=== PATIENT | male | born 1990 | race African-American/Black ===

== ENCOUNTER 2021-02-04 06:02 | Emergency (ER) | payer BC ==
[2021-02-04 06:33] LABS: Urine Blood Trace-intact (Negative); Urine Glucose Negative (Negative); Urine Protein Negative (Negative); Urine Specific Gravity 1.025 (1.005-1.030); Urine pH 5.5 (5.0-7.0)
--- NOTE | 2021-02-04 06:46 | EDPHYS ---
Physician Documentation [facility] Name: Reji Moncada Jr Age: 30 yrs Sex: Male : 1990 Arrival Date: 02/04/2021 Time: 06:07 Bed 4 Private MD: ED Physician Gavin Aquino HPI: 02/04 07:03 This 30 yrs old Black Male presents to ER via Ambulatory with complaints of Abdominal tw4 Pain. 07:03 The patient presents with abdominal pain in the left lower quadrant. Onset: The tw4 symptoms/episode began/occurred 2 day(s) ago. The symptoms do not radiate. Associated signs and symptoms: none. The symptoms are described as dull. Modifying factors: The symptoms are alleviated by nothing, the symptoms are aggravated by nothing. Severity of pain: At its worst the pain was mild in the emergency department the pain has resolved. The patient has not experienced similar symptoms in the past. 07:03 PT WANTS STD TEST. tw4 Historical: - Allergies: 06:24 No Known Allergies; bb - Home Meds: 06:24 None [Active]; bb - PMHx: 06:24 None; bb - PSHx: 06:24 None; bb - Immunization history:: Adult Immunizations up to date. - Social history:: Smoking status: Patient denies any tobacco usage or history of. Patient uses alcohol, occasionally. Patient/guardian denies using street drugs. ROS: 07:03 Constitutional: Negative for fever, chills, and weight loss, Eyes: Negative for injury, tw4 pain, redness, and discharge. 07:03 Cardiovascular: Negative for chest pain, palpitations, and edema, Respiratory: Negative for shortness of breath, cough, wheezing, and pleuritic chest pain, Back: Negative for injury and pain, MS/Extremity: Negative for injury and deformity, Skin: Negative for injury, rash, and discoloration, Neuro: Negative for headache, weakness, numbness, tingling, and seizure. 07:03 Abdomen/GI: Positive for abdominal pain. Exam: 07:03 Constitutional: This is a well developed, well nourished patient who is awake, alert, tw4 and in no acute distress. Head/Face: Normocephalic, atraumatic. Chest/axilla: Normal chest wall appearance and motion. Nontender with no deformity. No lesions are appreciated. Cardiovascular: Regular rate and rhythm with a normal S1 and S2. No gallops, murmurs, or rubs. Normal PMI, no JVD. No pulse deficits. Respiratory: Lungs have equal breath sounds bilaterally, clear to auscultation and percussion. No rales, rhonchi or wheezes noted. No increased work of breathing, no retractions or nasal flaring. Abdomen/GI: Soft, non-tender, with normal bowel sounds. No distension or tympany. No guarding or rebound. No evidence of tenderness throughout. Back: No spinal tenderness. No costovertebral tenderness. Full range of motion. MS/ Extremity: Pulses equal, no cyanosis. Neurovascular intact. Full, normal range of motion. Neuro: Awake and alert, GCS 15, oriented to person, place, time, and situation. Cranial nerves II-XII grossly intact. Motor strength 5/5 in all extremities. Sensory grossly intact. Cerebellar exam normal. Normal gait. Vital Signs: 06:22 BP 120 / 79; Pulse 93; Resp 16 S; Temp 98.2(O); Pulse Ox 99% on R/A; Weight 90.72 kg bb (R); Height 5 ft. 10 in. (177.80 cm) (R); Pain 0/10; 06:22 Body Mass Index 28.70 (90.72 kg, 177.80 cm) bb MDM: 06:37 Patient medically screened. [facility] 07:06 Data reviewed: vital signs, nurses notes. Counseling: I had a detailed discussion with [facility] the patient and/or guardian regarding: the historical points, exam findings, and any diagnostic results supporting the discharge/admit diagnosis. Medical screen evaluation completed. [facility] emergency medical condition absent. 02/04 06:33 Order name: Urine Dipstick-Ancillary EDMS Administered Medications: No medications were administered Disposition: 02/04/21 06:45 Discharged to Home. Impression: Unspecified abdominal pain. - Condition is Stable. - Medication Reconciliation Form, Thank You Letter, Antibiotic Education, Prescription Opioid Use form. - Follow up: Private Physician; When: Upon discharge from the Emergency Department; Reason: Recheck today's complaints, Continuance of care, Re-evaluation by your physician. - Problem is new. - Symptoms have improved. Signatures: Dispatcher [employer] Marya Rich, RN RN Gavin Lobo MD MD tw4 Corrections: (The following items were deleted from the chart) 06:49 06:45 02/04/2021 06:45 Discharged to Home. Impression: Unspecified abdominal pain. bb Condition is Stable. Forms are Medication Reconciliation Form, Thank You Letter, Antibiotic Education, Prescription Opioid Use. Follow up: Private Physician; When: Upon discharge from the Emergency Department; Reason: Recheck today's complaints, Continuance of care, Re-evaluation by your physician. Problem is new. Symptoms have improved. tw4
--- NOTE | 2021-02-04 06:46 | ER ---
Nurse's Notes [facility] Name: Reji Moncada Jr Age: 30 yrs Sex: Male : 1990 Arrival Date: 02/04/2021 Time: 06:07 Bed 4 Private MD: Diagnosis: Unspecified abdominal pain Presentation: 02/04 06:22 Chief complaint: Patient states: he started having intermittent sharp left lower bb quadrant pain and when he googled his symptoms it said he may have an STD so he wants to get checked. Denies dysuria or penile discharge. Coronavirus screen: At this time, the client does not indicate any symptoms associated with coronavirus-19. Ebola Screen: No symptoms or risks identified at this time. Initial Sepsis Screen: Does the patient meet any 2 criteria? No. Patient's initial sepsis screen is negative. Does the patient have a suspected source of infection? No. Patient's initial sepsis screen is negative. Risk Assessment: Do you want to hurt yourself or someone else? Patient reports no desire to harm self or others. Onset of symptoms was February 01, 2021. 06:22 Method Of Arrival: Ambulatory bb 06:22 Acuity: DAVID 4 bb Historical: - Allergies: 06:24 No Known Allergies; bb - Home Meds: 06:24 None [Active]; bb - PMHx: 06:24 None; bb - PSHx: 06:24 None; bb - Immunization history:: Adult Immunizations up to date. - Social history:: Smoking status: Patient denies any tobacco usage or history of. Patient uses alcohol, occasionally. Patient/guardian denies using street drugs. Assessment: 06:35 Reassessment: Dr Aquino at bedside pt denies abdominal pain at this time states he bb wants to get checked for an STD. Pt given medical screening exam and choose to leave the ED. Pt given community resources for STD clinic. Vital Signs: 06:22 BP 120 / 79; Pulse 93; Resp 16 S; Temp 98.2(O); Pulse Ox 99% on R/A; Weight 90.72 kg bb (R); Height 5 ft. 10 in. (177.80 cm) (R); Pain 0/10; 06:22 Body Mass Index 28.70 (90.72 kg, 177.80 cm) bb ED Course: 06:07 Patient arrived in ED. es 06:24 Triage completed. bb 06:24 Arm band placed on Patient placed in an exam room, on a stretcher, on pulse oximetry. bb 06:37 Gavin Aquino MD is Attending Physician. tw4 Administered Medications: No medications were administered Outcome: 06:45 Discharge ordered by . tw4 06:49 Patient left the ED. bb Signatures: Radha Bello Brenda RN RN bb Gavin Aquino MD MD tw4
[2021-02-04 06:54] VITALS: BP 120/79; TEMP 98.2; O2SAT 99
== END 2021-02-04 06:49 | disposition home or self-care (01) ==
LOC: ER 06:02 → EDBD 06:02 → ER 06:49
DX: R10.32 Left lower quadrant pain (principal)
CPT/HCPCS: 81003; 99282

== ENCOUNTER 2021-02-08 10:40 | Emergency (ER) | payer BC ==
[2021-02-08 12:29] LABS: Urine Blood Trace-lysed (Negative); Urine Glucose Negative (Negative); Urine Protein Negative (Negative); Urine pH 6.5 (5.0-7.0)
[2021-02-08] MEDS ORDERED: ONDANSETRON 4 MG/2 ML VIAL ONE (12:52)
[2021-02-08] MEDS ORDERED: MORPHINE 4 MG/ML SYR ONE (12:52)
[2021-02-08 12:57] LABS: Absolute Lymphocytes (CBC) 1.2 K/uL (0.7-4.9); Hematocrit 42.7 % (39.6-49.0); Lymphocytes % 19.6 % (15.3-44.8); MPV 9.2 fL (7.6-11.3)
[2021-02-08 13:09] LABS: Albumin 4.2 g/dL (3.4-5.0); Bilirubin Direct 0.1 mg/dL (0-0.2); Bilirubin Total 0.4 mg/dL (0.2-1.0); Protein, Total 8.6 g/dL (6.4-8.2)
--- NOTE | 2021-02-08 13:37 | RAD REPORT ---
EXAM DESCRIPTION: CTAbdomen Pelvis W Contrast - 02/08/2021 1:24 pm CLINICAL HISTORY: Abdominal pain. ABD PAIN COMPARISON: No comparisons TECHNIQUE: Biphasic CT imaging of the abdomen and pelvis was performed with 100 ml non-ionic IV cont rast. All CT scans are performed using dose optimization technique as appropriate and may include automated exposure control or mA/KV adjustment according to patient size. FINDINGS: The lung bases are clear. The liver contains a 9 mm benign cyst. Spleen, pancreas, adrenal glands and kidneys are within normal limits. No bowel obstruction, free air, free fluid or abscess. The appendix is normal. No evidence of signi ficant lymphadenopathy. No suspicious bony findings. IMPRESSION: No acute intra-abdominal or pelvic finding.
--- NOTE | 2021-02-08 14:00 | EDPHYS ---
Physician Documentation [facility] Name: Reji Moncada Jr Age: 30 yrs Sex: Male : 1990 Arrival Date: 02/08/2021 Time: 10:44 Bed 23 Private MD: ED Physician Librado James HPI: 02/08 13:53 This 30 yrs old Black Male presents to ER via Ambulatory with complaints of Abdominal saturnino Pain. 13:53 The patient presents with abdominal pain in the lower abdomen. Onset: The saturnino symptoms/episode began/occurred 3 day(s) ago. The symptoms do not radiate. Associated signs and symptoms: Pertinent positives: dysuria. The symptoms are described as crampy. Modifying factors: The symptoms are alleviated by nothing, the symptoms are aggravated by nothing. Severity of pain: At its worst the pain was mild in the emergency department the pain is unchanged. The patient has not experienced similar symptoms in the past. Historical: - Allergies: 11:10 No Known Allergies; aa5 - Home Meds: 11:10 None [Active]; aa5 - PMHx: 11:10 None; aa5 - PSHx: 11:10 None; aa5 - Immunization history:: Adult Immunizations up to date. - Social history:: Smoking status: Patient denies any tobacco usage or history of. - Family history:: not pertinent. ROS: 13:53 Constitutional: Negative for fever, chills, and weight loss, Eyes: Negative for injury, saturnino pain, redness, and discharge, ENT: Negative for injury, pain, and discharge, Neck: Negative for injury, pain, and swelling, Cardiovascular: Negative for chest pain, palpitations, and edema, Respiratory: Negative for shortness of breath, cough, wheezing, and pleuritic chest pain, Back: Negative for injury and pain, : Negative for injury, bleeding, discharge, and swelling, MS/Extremity: Negative for injury and deformity, Skin: Negative for injury, rash, and discoloration, Neuro: Negative for headache, weakness, numbness, tingling, and seizure, Psych: Negative for depression, anxiety, suicide ideation, homicidal ideation, and hallucinations, Allergy/Immunology: Negative for hives, rash, and allergies, Endocrine: Negative for neck swelling, polydipsia, polyuria, polyphagia, and marked weight changes, Hematologic/Lymphatic: Negative for swollen nodes, abnormal bleeding, and unusual bruising. 13:53 Abdomen/GI: Positive for abdominal pain, of the suprapubic area. Exam: 13:53 Constitutional: This is a well developed, well nourished patient who is awake, alert, saturnino and in no acute distress. Head/Face: Normocephalic, atraumatic. Eyes: Pupils equal round and reactive to light, extra-ocular motions intact. Lids and lashes normal. Conjunctiva and sclera are non-icteric and not injected. Cornea within normal limits. Periorbital areas with no swelling, redness, or edema. ENT: Nares patent. No nasal discharge, no septal abnormalities noted. Tympanic membranes are normal and external auditory canals are clear. Oropharynx with no redness, swelling, or masses, exudates, or evidence of obstruction, uvula midline. Mucous membranes moist. Neck: Trachea midline, no thyromegaly or masses palpated, and no cervical lymphadenopathy. Supple, full range of motion without nuchal rigidity, or vertebral point tenderness. No Meningismus. Chest/axilla: Normal chest wall appearance and motion. Nontender with no deformity. No lesions are appreciated. Cardiovascular: Regular rate and rhythm with a normal S1 and S2. No gallops, murmurs, or rubs. Normal PMI, no JVD. No pulse deficits. Respiratory: Lungs have equal breath sounds bilaterally, clear to auscultation and percussion. No rales, rhonchi or wheezes noted. No increased work of breathing, no retractions or nasal flaring. Abdomen/GI: Soft, non-tender, with normal bowel sounds. No distension or tympany. No guarding or rebound. No evidence of tenderness throughout. Back: No spinal tenderness. No costovertebral tenderness. Full range of motion. Male : Normal genitalia with no discharge or lesions. Skin: Warm, dry with normal turgor. Normal color with no rashes, no lesions, and no evidence of cellulitis. MS/ Extremity: Pulses equal, no cyanosis. Neurovascular intact. Full, normal range of motion. Neuro: Awake and alert, GCS 15, oriented to person, place, time, and situation. Cranial nerves II-XII grossly intact. Motor strength 5/5 in all extremities. Sensory grossly intact. Cerebellar exam normal. Normal gait. Psych: Awake, alert, with orientation to person, place and time. Behavior, mood, and affect are within normal limits. Vital Signs: 11:09 BP 149 / 77; Pulse 105; Resp 18 S; Temp 98.2(TE); Pulse Ox 99% on R/A; Weight 90.72 kg aa5 (R); Height 5 ft. 10 in. (177.80 cm) (R); Pain 4/10; 14:00 BP 131 / 91; Pulse 72; Resp 16; Pulse Ox 100% on R/A; zb 11:09 Body Mass Index 28.70 (90.72 kg, 177.80 cm) aa5 MDM: 12:22 Patient medically screened. [facility] 13:55 Differential diagnosis: diverticulitis, gastritis, Irritable bowel syndrome, saturnino non-specific abd pain, pancreatitis, Peptic Ulcer Disease, urinary tract infection. Data reviewed: vital signs, nurses notes, lab test result(s), radiologic studies, CT scan. Data interpreted: color television console monitor: rate is 105 beats/min, rhythm is regular, Pulse oximetry: on room air is 9 %. 13:57 Counseling: I had a detailed discussion with the patient and/or guardian regarding: the [facility] historical points, exam findings, and any diagnostic results supporting the discharge/admit diagnosis, lab results, radiology results, the need for outpatient follow up, for definitive care, a family practitioner. 02/08 12:25 Order name: Basic Metabolic Panel [facility] 02/08 12:25 Order name: CBC with Diff [facility] 02/08 12:25 Order name: Hepatic Function; Complete Time: 13:51 [facility] 02/08 12:25 Order name: Lipase; Complete Time: 13:51 [facility] 02/08 12:25 Order name: Urine Culture [facility] 02/08 12:25 Order name: Basic Metabolic Panel; Complete Time: 13:51 [facility] 02/08 12:25 Order name: IV Saline Lock; Complete Time: 12:43 [facility] 02/08 12:25 Order name: CT Abd/Pelvis - IV Contrast Only; Complete Time: 13:51 [facility] 02/08 12:25 Order name: CBC with Automated Diff; Complete Time: 13:51 [facility] 02/08 12:29 Order name: Urine Dipstick-Ancillary [facility] 02/08 12:25 Order name: Labs collected and sent; Complete Time: 12:43 [facility] 02/08 12:25 Order name: Urine Dipstick-Ancillary (obtain specimen); Complete Time: 12:43 [facility] Administered Medications: 12:42 Drug: morphine 4 mg {Note: RASS 0.} Route: IVP; Site: right antecubital; zb 14:19 Follow up: Response: No adverse reaction; Pain is decreased; RASS: Alert and Calm (0) z 12:42 Drug: Zofran (Ondansetron) 4 mg Route: IVP; Site: right antecubital; zb 14:19 Follow up: Response: No adverse reaction zb 14:19 Drug: Rocephin (cefTRIAXone) 1 grams Route: IV; Rate: per protocol; Site: right zb antecubital; 14:36 Follow up: Response: No adverse reaction; IV Status: Completed infusion; IV Intake: 10mlzb 14:19 Drug: Zithromax (azithromycin) 1 grams Route: PO; zb 14:36 Follow up: Response: No adverse reaction; Medication administered at discharge. zb Disposition: 02/08/21 13:59 Discharged to Home. Impression: Abdominal tenderness. - Condition is Stable. - Discharge Instructions: Abdominal Pain, Adult, Sexually Transmitted Disease, [id number], Abdominal Pain, Adult, [id number]. - Medication Reconciliation Form, Thank You Letter, Antibiotic Education, Prescription Opioid Use form. - Follow up: Private Physician; When: 2 - 3 days; Reason: Recheck today's complaints, Continuance of care, Re-evaluation by your physician. Follow up: Ray Connor DO; When: 2 - 3 days; Reason: Recheck today's complaints, Re-evaluation by your physician. - Problem is new. - Symptoms have improved. Signatures: Dispatcher [employer] EDMS Librado James MD MD cha Calderon, Audri RN RN Yessenia Martinez RN RN zb Corrections: (The following items were deleted from the chart) 14:36 13:59 02/08/2021 13:59 Discharged to Home. Impression: Abdominal tenderness. Condition zb is Stable. Forms are Medication Reconciliation Form, Thank You Letter, Antibiotic Education, Prescription Opioid Use. Follow up: Private Physician; When: 2 - 3 days; Reason: Recheck today's complaints, Continuance of care, Re-evaluation by your physician. Follow up: Ray Connor; When: 2 - 3 days; Reason: Recheck today's complaints, Re-evaluation by your physician. Problem is new. Symptoms have improved. saturnino
--- NOTE | 2021-02-08 14:00 | ER ---
Nurse's Notes [facility] Name: Reji Moncada Jr Age: 30 yrs Sex: Male : 1990 Arrival Date: 02/08/2021 Time: 10:44 Bed 23 Private MD: Diagnosis: Abdominal tenderness Presentation: 02/08 11:09 Chief complaint: Patient states: lower abd pain that began 2-3 days ago. Pt denies aa5 vomiting/denies diarrhea. States "my balls kind of feel sore". Pt reports no difficulty voiding. Coronavirus screen: At this time, the client does not indicate any symptoms associated with coronavirus-19. Ebola Screen: Patient negative for fever greater than or equal to 101.5 degrees Fahrenheit, and additional compatible Ebola Virus Disease symptoms. Initial Sepsis Screen: Does the patient meet any 2 criteria? No. Patient's initial sepsis screen is negative. Does the patient have a suspected source of infection? No. Patient's initial sepsis screen is negative. Risk Assessment: Do you want to hurt yourself or someone else? Patient reports no desire to harm self or others. Onset of symptoms was February 2021. 11:09 Method Of Arrival: Ambulatory aa5 11:09 Acuity: DAVID 3 aa5 Historical: - Allergies: 11:10 No Known Allergies; aa5 - Home Meds: 11:10 None [Active]; aa5 - PMHx: 11:10 None; aa5 - PSHx: 11:10 None; aa5 - Immunization history:: Adult Immunizations up to date. - Social history:: Smoking status: Patient denies any tobacco usage or history of. - Family history:: not pertinent. Screenin:43 Abuse screen: Denies threats or abuse. Denies injuries from another. Nutritional zb screening: No deficits noted. Tuberculosis screening: No symptoms or risk factors identified. Fall Risk None identified. Assessment: 12:43 General: Appears in no apparent distress. uncomfortable, Behavior is calm, cooperative, zb appropriate for age. Pain: Complains of pain in groin, right femoral area and suprapubic area Pain does not radiate. Pain currently is 2 out of 10 on a pain scale. Quality of pain is described as pressure, Pain began 2-3 days ago. Neuro: Level of Consciousness is awake, alert, obeys commands. Cardiovascular: Patient's skin is warm and dry. Respiratory: Airway is patent Respiratory effort is even, unlabored, Respiratory pattern is regular, symmetrical. GI: Abdomen is flat, non-distended, Bowel sounds present X 4 quads. Abd is soft and non tender X 4 quads. Patient currently denies diarrhea, nausea, pain. : Urine is clear, Reports pain in suprapubic area Patient is sexually active. Derm: Skin is intact, is healthy with good turgor, Skin is normal. Musculoskeletal: Circulation, motion, and sensation intact. Range of motion: intact in all extremities. Vital Signs: 11:09 BP 149 / 77; Pulse 105; Resp 18 S; Temp 98.2(TE); Pulse Ox 99% on R/A; Weight 90.72 kg aa5 (R); Height 5 ft. 10 in. (177.80 cm) (R); Pain 4/10; 14:00 BP 131 / 91; Pulse 72; Resp 16; Pulse Ox 100% on R/A; zb 11:09 Body Mass Index 28.70 (90.72 kg, 177.80 cm) aa5 ED Course: 10:44 Patient arrived in ED. mr 11:09 Arm band placed on. aa5 11:10 Triage completed. aa 12:18 Yessenia Thibodeaux RN is Primary Nurse. zb 12:22 Librado James MD is Attending Physician. saturnino 12:44 Patient has correct armband on for positive identification. Patient has correct armband zb on for positive identification. Placed in gown. Bed in low position. Call light in reach. Pulse ox on. NIBP on. Door closed. Noise minimized. 12:45 Initial lab(s) drawn, by ok, sent to lab. Urine collected: clean catch specimen, clear. zb Inserted saline lock: 20 gauge in right antecubital area, using aseptic technique. Blood collected. 13:23 CT Abd/Pelvis - IV Contrast Only In Process Unspecified. EDMS 13:58 Ray Connor DO is Referral Physician. saturnino 14:35 No provider procedures requiring assistance completed. IV discontinued, intact, zb bleeding controlled, No redness/swelling at site. Pressure dressing applied. Administered Medications: 12:42 Drug: morphine 4 mg {Note: RASS 0.} Route: IVP; Site: right antecubital; zb 14:19 Follow up: Response: No adverse reaction; Pain is decreased; RASS: Alert and Calm (0) zb 12:42 Drug: Zofran (Ondansetron) 4 mg Route: IVP; Site: right antecubital; zb 14:19 Follow up: Response: No adverse reaction zb 14:19 Drug: Rocephin (cefTRIAXone) 1 grams Route: IV; Rate: per protocol; Site: right zb antecubital; 14:36 Follow up: Response: No adverse reaction; IV Status: Completed infusion; IV Intake: 10mlzb 14:19 Drug: Zithromax (azithromycin) 1 grams Route: PO; zb 14:36 Follow up: Response: No adverse reaction; Medication administered at discharge. zb Intake: 14:36 IV: 10ml; Total: 10ml. zb Outcome: 13:59 Discharge ordered by . saturnino 14:36 Discharged to home ambulatory. zb 14:36 Condition: stable 14:36 Discharge instructions given to patient, Instructed on discharge instructions, follow up and referral plans. safe sex practices, Demonstrated understanding of instructions, follow-up care. 14:36 Patient left the ED. zb Signatures: Dispatcher [employer] Librado Hdz MD MD cha Rivera, Aida Abdi, RN RN Yessenia Martinez RN RN zb
[2021-02-08] MEDS ORDERED: AZITHROMYCIN 250 MG TAB ONE (14:32)
[2021-02-08] MEDS ORDERED: CEFTRIAXONE/SWI 1gm 1 GM/10 ML SYR ONE (14:33)
[2021-02-08 15:05] VITALS: TEMP 98.2
[2021-02-08 15:06] VITALS: BP 131/91; O2SAT 100
== END 2021-02-08 14:36 | disposition home or self-care (01) ==
LOC: ER 10:40
DX: R10.819 Abdominal tenderness, unspecified site (principal)
CPT/HCPCS: 96365; 87088; 85025; 87086; 80048; 36415; 80076; 81003; 83690; 74177; 96375; 99284; Q9967; J0696; J2405